=== PATIENT | male | born 1990 | race Asian ===

== ENCOUNTER → 2017-05-30 11:19 | Emergency (ER) | payer OTHER ==
[~2017-05-30 11:19] MED LIST: Al Hydrox/Mg Hydrox/Simet LIQ* 30 ML UDC PO ONE; Iohexol 300* (CONTRAST) 10 ML SDV IV ONE; Ketorolac INJ* 30 MG/ML 1 ML VIAL IV ONE; Lidocaine 2% VISCOUS* 15 ML UDC PO ONE; Morphine INJ* 4 MG/ML 1 ML CARPUJECT IV ONE; Omeprazole CAP* 20 MG PO ONE; Ondansetron INJ* 2 MG/ML VIAL IV ONE; Ondansetron INJ* 2 MG/ML VIAL ONE; Ondansetron ODT TAB* 4 MG PO ONE; Pantoprazole IV* 40 MG IV ONE; Sucralfate TAB* 1 GM PO ONE
[2017-05-30] MEDS: NS 0.9% 1000 ML* 2,000 ML IV ONE (11:49)
[2017-05-30 12:20] LABS: Hematocrit 47 % (42-52); Hemoglobin 16.2 g/dl (14.0-18.0); Mean Corpuscular HGB Conc 35 g/dl (31-36); Mean Corpuscular Hemoglobin 32 pg (27-31); Mean Corpuscular Volume 91 fL (80-94); Red Blood Count 5.11 10^6/ul (4.0-5.4); Red Cell Distribution Width 12 % (10.5-15); White Blood Count 7.2 10^3/ul (3.5-10.8)
[2017-05-30 12:21] LABS: Add Diff/Slide Review? Slide Review Added; Comments Flag Yes
[2017-05-30 12:22] LABS: Albumin 4.6 g/dL (3.2-5.2); C Reactive Protein 2.52 mg/L (< 5.00); Calcium 9.6 mg/dL (8.6-10.3); EGFR African American 133.3 (>60); EGFR Non-African American 103.7 (>60); Globulin 3.1 g/dL (2-4); Potassium 3.7 mmol/L (3.5-5.0); Total Protein 7.7 g/dL (6.4-8.9)
--- NOTE | 2017-05-30 12:47 | RAD ---
INDICATION: Right upper quadrant pain. COMPARISON: There are no prior studies available for comparison. TECHNIQUE: Multiple real-time images of the right upper quadrant were obtained. FINDINGS: There is a small echogenic 2 mm structure within the gallbladder which did not move with changes in patient positioning most consistent with a polyp. No definite gallstones are seen. The gallbladder wall is not thickened. No pericholecystic fluid is present. There was no positive sonographic Byrne sign present. No intra or extrahepatic ductal distention is present. The common bile duct measured 0.3 cm in diameter. The liver is normal in size without significant focal abnormality. The pancreas is partially obscured by overlying bowel gas. The right kidney is normal in size without evidence for hydronephrosis. IMPRESSION: SMALL GALLBLADDER WALL POLYP, OTHERWISE UNREMARKABLE.
[2017-05-30 12:55] LABS: Mean Platelet Volume 9 um3 (7.4-10.4)
--- NOTE | 2017-05-30 14:43 | RAD ---
Indication: Upper abdominal pain. Contrast: Administered 83.0 ml of OMNIPAQUE 300 mg/ml CT of the abdomen and pelvis was performed after oral and IV contrast administration. Coronal and sagittal reconstructed images were obtained. Lung bases demonstrate no pleural fluid, nodules, alveolar consolidation. Liver is normal in size. No focal lesions or intrahepatic duct dilatation is noted. The spleen is normal in size. Pancreas indicates no mass or pancreatic duct dilatation. Common duct is not dilated. No adrenal lesions are noted. The kidneys demonstrate symmetric nephrograms without hydronephrosis in either kidney. No retroperitoneal lymphadenopathy is noted. No dilated loops of bowel are noted. CT of the pelvis demonstrates normal appearing appendix. Small bowel demonstrates no abnormal dilatation. The urinary bladder is partially collapsed. No hernias are noted. Prostate and seminal vesicles are unremarkable. IMPRESSION: No abnormal masses or fluid collections are identified. No obstructive uropathy is noted. Normal appendix.
[2017-05-30 15:04] LABS: Urine Bilirubin Negative (Negative); Urine Glucose Negative (Negative); Urine Nitrite Negative (Negative)
--- NOTE | 2017-05-30 17:18 | ED ---
Izzy Albright Edward, scribed for Tyrese Tavares MD on 05/30/17 at 1133 . Abdominal Pain/Male - HPI Summary HPI Summary: 26 y/o male BIBA c/o ABD pain starting yesterday morning. The pt went to [facility] this morning and was sent here. The pain is a constant pain located in the middle of the ABD around the periumbilical region, rated 7/10 in severity. The pain is aggravated with "stimulation". Denies fevers. Denies trouble with bowel movements, urinary symptoms or pain in the testicles. Subjective chills. The pt does not feel nauseous now. The pt ate last night, and the ABD pain got worse;he also became gassy. No relevant Sx. - History of Current Complaint Stated Complaint: ABD PAIN Hx Obtained From: Patient Onset/Duration: Lasting Days, Still Present Timing: Constant Severity Currently: Moderate Pain Intensity: 7 Pain Scale Used: 0-10 Numeric Location: Umbilical Aggravating Factor(s): Food, Other: - "stimulation" Alleviating Factor(s): Nothing Associated Signs And Symptoms: Positive: Other - subjective chills. Negative: Fever, Urinary Symptoms, Nausea, Vomiting - Allergies/Home Medications Allergies/Adverse Reactions: Allergies Allergy/AdvReac Type Severity Reaction Status Date / Time Eggs or Egg-derived Products Allergy Vomiting Verified 05/30/17 11:57 PMH/Surg Hx/FS Hx/Imm Hx Previously Healthy: Yes Endocrine/Hematology History: Denies: Hx Diabetes Cardiovascular History: Denies: Hx Myocardial Infarction - Surgical History Surgery Procedure, Year, and Place: N/A - Family History Known Family History: Positive: Diabetes - Father - Social History Alcohol Use: None Hx Substance Use: No Substance Use Type: Reports: None Hx Tobacco Use: No Smoking Status (MU): Never Smoked Tobacco Review of Systems Positive: Chills - subjective Eyes: Negative ENT: Negative Cardiovascular: Negative Respiratory: Negative Positive: Abdominal Pain. Negative: Vomiting, Nausea Genitourinary: Negative Musculoskeletal: Negative Skin: Negative Neurological: Negative Psychological: Normal All Other Systems Reviewed And Are Negative: Yes Physical Exam Triage Information Reviewed: Yes Vital Signs On Initial Exam: Initial Vitals Temp Pulse Resp BP Pulse Ox 98.1 F 61 20 137/95 97 05/30/17 11:22 05/30/17 11:22 05/30/17 11:22 05/30/17 11:22 05/30/17 11:22 Vital Signs Reviewed: Yes Appearance: Positive: Well-Appearing, Pain Distress - mild Skin: Positive: Warm, Skin Color Reflects Adequate Perfusion, Dry Head/Face: Positive: Normal Head/Face Inspection Eyes: Positive: EOMI, DREW ENT: Positive: Normal ENT inspection Neck: Positive: Supple, Nontender Respiratory/Lung Sounds: Positive: Clear to Auscultation, Breath Sounds Present Cardiovascular: Positive: RRR Abdomen Description: Positive: Soft, Other: - Tender @ mid upper ABD Bowel Sounds: Positive: Hypoactive Musculoskeletal: Positive: Normal, Strength/ROM Intact Neurological: Positive: Normal, Sensory/Motor Intact, Alert, Oriented to Person Place, Time Psychiatric: Positive: Affect/Mood Appropriate Diagnostics - Vital Signs Vital Signs Temp Pulse Resp BP Pulse Ox 05/30/17 16:00 53 118/81 96 05/30/17 15:29 84 133/74 95 05/30/17 15:28 18 05/30/17 15:00 56 96 05/30/17 14:00 67 124/71 99 05/30/17 13:30 66 132/79 100 05/30/17 13:00 70 18 133/89 99 05/30/17 12:30 69 132/87 95 05/30/17 12:00 54 122/75 99 05/30/17 11:56 56 98 05/30/17 11:54 123/77 05/30/17 11:22 98.1 F 61 20 137/95 97 - Laboratory Lab Results: Lab Results 05/30/17 05/30/17 05/30/17 Range/Units 11:45 11:45 11:45 WBC 7.2 (3.5-10.8) 10^3/ul RBC 5.11 (4.0-5.4) 10^6/ul Hgb 16.2 (14.0-18.0) g/dl Hct 47 (42-52) % MCV 91 (80-94) fL MCH 32 H (27-31) pg MCHC 35 (31-36) g/dl RDW 12 (10.5-15) % Plt Count 226 (150-450) 10^3/ul MPV 9 (7.4-10.4) um3 Neut % (Auto) 75.5 (38-83) % Lymph % (Auto) 13.5 L (25-47) % [place] % (Auto) 8.6 (1-9) % Eos % (Auto) 1.5 (0-6) % Baso % (Auto) 0.9 (0-2) % Absolute Neuts (auto) 5.4 (1.5-7.7) 10^3/ul Absolute Lymphs (auto) 1.0 (1.0-4.8) 10^3/ul Absolute Monos (auto) 0.6 (0-0.8) 10^3/ul Absolute Eos (auto) 0.1 (0-0.6) 10^3/ul Absolute Basos (auto) 0.1 (0-0.2) 10^3/ul Absolute Nucleated RBC 0 10^3/ul Nucleated RBC % 0 INR (Anticoag Therapy) 0.95 (0.89-1.11) APTT 24.6 L (26.0-36.3) seconds Sodium 134 (133-145) mmol/L Potassium 3.7 (3.5-5.0) mmol/L Chloride 102 (101-111) mmol/L Carbon Dioxide 25 (22-32) mmol/L Anion Gap 7 (2-11) mmol/L BUN 9 (6-24) mg/dL Creatinine 0.90 (0.67-1.17) mg/dL Est GFR ( Amer) 133.3 (>60) Est GFR (Non-Af Amer) 103.7 (>60) BUN/Creatinine Ratio 10.0 (8-20) Glucose 110 H (70-100) mg/dL Lactic Acid (0.5-2.0) mmol/L Calcium 9.6 (8.6-10.3) mg/dL Total Bilirubin 1.00 (0.2-1.0) mg/dL AST 19 (13-39) U/L ALT 14 (7-52) U/L Alkaline Phosphatase 37 (34-104) U/L C-Reactive Protein 2.52 (< 5.00) mg/L Total Protein 7.7 (6.4-8.9) g/dL Albumin 4.6 (3.2-5.2) g/dL Globulin 3.1 (2-4) g/dL Albumin/Globulin Ratio 1.5 (1-3) Lipase 12 (11.0-82.0) U/L Urine Color Urine Appearance Urine pH (5-9) Ur Specific [place] (1.010-1.030) Urine Protein (Negative) Urine Ketones (Negative) Urine Blood (Negative) Urine Nitrate (Negative) Urine Bilirubin (Negative) Urine Urobilinogen (Negative) Ur Leukocyte Esterase (Negative) Urine Glucose (Negative) 05/30/17 05/30/17 Range/Units 11:45 14:45 WBC (3.5-10.8) 10^3/ul RBC (4.0-5.4) 10^6/ul Hgb (14.0-18.0) g/dl Hct (42-52) % MCV (80-94) fL MCH (27-31) pg MCHC (31-36) g/dl RDW (10.5-15) % Plt Count (150-450) 10^3/ul MPV (7.4-10.4) um3 Neut % (Auto) (38-83) % Lymph % (Auto) (25-47) % [place] % (Auto) (1-9) % Eos % (Auto) (0-6) % Baso % (Auto) (0-2) % Absolute Neuts (auto) (1.5-7.7) 10^3/ul Absolute Lymphs (auto) (1.0-4.8) 10^3/ul Absolute Monos (auto) (0-0.8) 10^3/ul Absolute Eos (auto) (0-0.6) 10^3/ul Absolute Basos (auto) (0-0.2) 10^3/ul Absolute Nucleated RBC 10^3/ul Nucleated RBC % INR (Anticoag Therapy) (0.89-1.11) APTT (26.0-36.3) seconds Sodium (133-145) mmol/L Potassium (3.5-5.0) mmol/L Chloride (101-111) mmol/L Carbon Dioxide (22-32) mmol/L Anion Gap (2-11) mmol/L BUN (6-24) mg/dL Creatinine (0.67-1.17) mg/dL Est GFR ( Amer) (>60) Est GFR (Non-Af Amer) (>60) BUN/Creatinine Ratio (8-20) Glucose (70-100) mg/dL Lactic Acid 1.3 (0.5-2.0) mmol/L Calcium (8.6-10.3) mg/dL Total Bilirubin (0.2-1.0) mg/dL AST (13-39) U/L ALT (7-52) U/L Alkaline Phosphatase (34-104) U/L C-Reactive Protein (< 5.00) mg/L Total Protein (6.4-8.9) g/dL Albumin (3.2-5.2) g/dL Globulin (2-4) g/dL Albumin/Globulin Ratio (1-3) Lipase (11.0-82.0) U/L Urine Color Yellow Urine Appearance Clear Urine pH 7.0 (5-9) Ur Specific [place] 1.008 L (1.010-1.030) Urine Protein Negative (Negative) Urine Ketones Trace H (Negative) Urine Blood Negative (Negative) Urine Nitrate Negative (Negative) Urine Bilirubin Negative (Negative) Urine Urobilinogen Negative (Negative) Ur Leukocyte Esterase Negative (Negative) Urine Glucose Negative (Negative) Result Diagrams: 05/30/17 11:45 05/30/17 11:45 Lab Statement: Any lab studies that have been ordered have been reviewed, and results considered in the medical decision making process. - CT CT Abd/Pel CT Interpretation: No Acute Changes - No abnormal masses or fluid collections are identified. No obstructive uropathy is noted. Normal appendix. ED physician has reviewed this report and agrees. CT Interpretation Completed By: Radiologist - Ultrasound No standard instances Ultrasound Interpretation: Positive (See Comments) - GALLBLADDER US - SMALL GALLBLADDER WALL POLYP, OTHERWISE UNREMARKABLE. Ultrasound Interpretation Completed By: Radiologist Abdominal Pain Fem Course/Dx - Course Course Of Treatment: DISCUSSED RESULTS WITH PATIENT. SOME IMPROVEMENT OF PAIN IN ED. WITH TENDERNESS IN THE EPIGASTRIUM AND NORMAL CT/US/LABS; MOST LIKELY SOURCE OF PAIN IS THE STOMACH. DISCUSSED ADMISSION; THE PATIENT DID NOT WISH TO BE ADMITTED. WILL TREAT WITH OMEPRAZOLE AND CARAFATE. F/U WITH [facility]. RETURN IF WORSE. - Diagnoses Provider Diagnoses: Epigastric pain Discharge - Discharge Plan Condition: Stable Disposition: HOME Prescriptions: Omeprazole CAP* [Prilosec CAP* 20 MG] 20 mg PO BID #30 cap. Sucralfate TAB* [Carafate*] 1 gm PO QID #60 tab Patient Education Materials: Epigastric Pain (ED) Referrals: [facility] - Richie LEYVA [Primary Care Provider] - Additional Instructions: FOLLOW UP WITH [facility]. RETURN TO THE EMERGENCY DEPARTMENT FOR ANY WORSENING OF YOUR CONDITION; PAIN, FEVER, VOMITING, YOU FEEL ILL OR QUESTIONS OR CONCERNS. The documentation as recorded by the Izzy bartlett Edward accurately reflects the service I personally performed and the decisions made by me, Tyrese Tavares MD.
== END | disposition home or self-care (01) ==
LOC: ED 11:19
DX: R10.13 Epigastric pain (principal); R68.83 Chills (without fever)
CPT/HCPCS: 36415; 74177; 76705; 80053; 81003; 83605; 83690; 85025; 85610; 85730; 86140; 96361; 96374; 96375; 99284; A9270-GY; J1885; J2270; J2405; Q9967